=== PATIENT | male | born 1960 | race Caucasian/White ===

== ENCOUNTER → 2019-06-27 09:50 | Outpatient (CLI) | payer MEDICARE, OTHER, SELFPAY ==
[2019-06-27 10:58] LABS: Add Manual Diff / Slide Review NO; Basophils Absolute Auto 0 /uL (0-100); Basophils Percent Auto 0.6 % (0-2); Eosinophils Absolute Auto 100 /uL (0-450); Eosinophils Percent Auto 1.8 % (2-4); Hematocrit 46.3 % (41-53); Lymphocytes Absolute Auto 1800 /uL (1100-4500); Mean Corpuscular HGB Conc 34.5 % (30-36); Mean Corpuscular Hemoglobin 30.6 PG (26-34); Mean Corpuscular Volume 88.7 fL (80-100); Monocytes Absolute Auto 400 /uL (0-900); Monocytes Percent Auto 6.8 % (3-14); Neutrophils Absolute Auto 3200 /uL (1500-7000); Neutrophils Percent Auto 57.8 % (50-75); Platelet Count 197 X10^3/uL (150-400); Red Blood Cell Count 5.22 X10^6/uL (4.5-5.9); Red Cell Distribution Width 13.1 % (11.6-14.8); White Blood Cell Count 5.5 X10^3/uL (4.5-11.0)
[2019-06-27 12:07] LABS: Blood Urea Nitrogen 28 mg/dL (9-20); Calcium 9.6 mg/dL (8.4-10.2); Carbon Dioxide 24 mmol/L (22-32); Chloride 106 mmol/L (98-107); Estimated Glomerular Filt Rate > 60.0 mL/min (>60); Glucose 107 mg/dL (70-100); HEMOLYSIS < 15 (0-50); Potassium 4.9 mmol/L (3.4-5.1); Sodium 141 mmol/L (137-145)
== END ==
PROVIDERS: Visit Provider Physician Assistant Surgical
DX: Z01.818 Encounter for other preprocedural examination (principal); M54.5 Low back pain
CPT/HCPCS: 36415; 80048; 85025; 93005

== ENCOUNTER 2019-07-25 06:04 | Inpatient (IN) | payer MEDICARE, OTHER, SELFPAY ==
[2019-07-15 09:52] VITALS: BMI 30.4
[2019-07-25] VITALS (17 sets, daily range): BP systolic 98–142; BP diastolic 67–87; PULSE 61–107; RESP 10–20; TEMP 36–36.8; O2SAT 93–100; BMI 30.4
--- NOTE | 2019-07-25 | DI.RAD.S_ITS ---
PROCEDURE: XR LUMBAR SPINE 2-3V INDICATIONS: L3-5 TLIF W/ POSTERIOR INSTRUMENTATION TECHNIQUE: 3 views of the lumbar spine were acquired. COMPARISON: None. FINDINGS: 3 intraoperative fluoroscopy images demonstrate discectomy, laminectomy and posterior fusion at L3-L4 and L4-L5. Pedicular screws and fusion rods are in expected position. IMPRESSION: Discectomy, laminectomy and posterior fusion at L3-L4 and L4-L5. Dictated by: Mitzi Dahl M.D. on 07/25/2019 at 14:02 Approved by: Mitzi Dahl M.D. on 07/25/2019 at 14:03
[2019-07-25] MEDS: LACTATED RINGERS 1,000 ML 42 ML IV ×2 (07:31→09:58)
[2019-07-25] MEDS: ALBUTEROL 2.5 MG/3 ML NEB (ADULT) INH (07:32)
--- NOTE | 2019-07-25 07:46 | PM.PREOP ---
Pre-operative Note Interval Note History & Physical reviewed/Exam performed by Physician: Yes Changes to H&P: No
[2019-07-25] MEDS: CEFAZOLIN 2 GM/100 ML FROZ.PIGGY IV ×2 (07:50→17:19)
--- NOTE | 2019-07-25 08:34 | SUR.OPER ---
Prone on spine table, head in foam head support, padded chest and pelvic supports, gel pad at knees, lower legs supported by pillows; nipples, genitalia and toes free of pressure, arms secured on foam padded arm boards at <90 degrees abduction. Tape over blanket at thigh secured to table.
[2019-07-25] MEDS: BUPIVACAINE LIPOSOME 266 MG/20 ML VIAL INJ (08:42)
[2019-07-25] MEDS: BUPIVACAINE 0.25% W/ EPI 30 ML VIAL INJ (08:42)
--- NOTE | 2019-07-25 12:41 | P.OP_ITS ---
Operative Date/Time/Diagnoses Date of procedure: 07/25/19 Time of procedure: 07:54 Pre-op diagnosis: 1. Lumbar scoliosis 2. Lumbar lateral listhesis L4-5 3. L3-4, L4-5 spinal stenosis Post-op diagnosis: same Procedure & Clinicians Procedure: 1. L3-4, L4-5 Postero-lateral and posterior interbody fusion 2. L3-4, L4-5 interbody cage placement. 3. L3-4, L4-5 decompressive laminectomy with bilateral facetecomies 4. L3-4, L4-5 Posterior segmental instrumentation 5. [place] of bone marrow from iliac crest 6. Utilization of microsurgical technique and operating microscope Same procedure as scheduled: Yes Indications: Patient has been having chronic back pain and worsening lumbar radiculopathy. Patient failed multiple conservative management with worsening pain weakness and numbness in her lower extremity. Patient has been having difficulty performing activity of daily living. After discussing risks benefits of treatment options, patient elected proceed with surgery. Surgeon: Amarjit Trinidad Power Lineman: Ami Johnson Click Yes if Unassisted: No Anesthesia Type: General Operative Notes Closure Type: primary Specimen(s): none sent Prosthetic devices, grafts, tissues, transplants, or devices: Globus revolve screws, Rise cages Applied: catheter Estimated Blood Loss (mL): 400 Blood products transfused: none Procedure in detail: Patient was seen in the preoperative area. Risks and benefits of the surgery was discussed with the patient. Informed consent was obtained from the patient and placed in the chart. Surgical site was marked. Patient was taken to the operative room. General anesthesia was administered. Prophylactic antibiotic was given to the patient less than 30 min before the incision was made. Patient was placed into a prone position on the Jose Raul table. Patient's back was then prepped and draped in the sterile fashion. Time- out was performed at this time. Using AP and lateral C-arm imaging the interval between L3-4, L4-5 was identified and marked on patient's back. A 2 inch incision 2 in from midline was made on the left side first. The fascia was incised in line with skin incision. Globus MARS retractors was placed inside the incision and docked onto the L3 and L4 lamina. Using microsurgical technique and operating microscope, a L3 and L4 laminectomy and L3-4 L4-5 facetectomy was performed using a Kerrison rongeur. During the process of decompression more than 75% of bilateral L3-4, L4-5 facets were removed in order to decompress the spinal canal and the lateral recess. The L3-4, L4-5 level was grossly unstable after the decompression was completed and requiring the fusion procedure. The disc space at L3-4, L4-5 was identified. And a total diskectomy was performed at L3-4, L4-5 level. The endplates were decorticated using a rasp and shaver. The total diskectomy and decortication was performed at L3-4, L4-5 level in order to to accomplish a L3- 4, L4-5 fusion. The local bone from the laminectomy and facetectomy was saved for local bone grafting. After the total diskectomy and decortication was completed, Bio4 bone graft material was combined with local bone that was harvested earlier. At this time, a separate skin is incision was made over the iliac crest. A Jamshidi needle was inserted into the iliac crest through a separate skin incision. 5 cc of bone marrow aspiration was obtained through the separate skin incision using a Jamshidi needle from the iliac crest. The bone marrow aspiration was combined with local bone and the Bio4 bone grafting material. The bone grafting material was placed into the L3-4, L4-5 interbody space along with two cages, one expandable cage at each level. The cages were expanded to their maximum height using the torque limiting screwdriver. At this time a mirror image incision was made on the right side. The fascia was incised in line with the skin incision. Globus MARS retractor was inserted and docked onto the L3-4, L4-5 posterolateral gutter. Using the power drill, posterior-lateral decortication was performed at L3-4, L4-5 level until bleeding cortical bone was identified. The remaining bone grafting material was placed into the L4-5 L5-S1 posterior lateral gutter he order to accomplish posterolateral fusion at the L3-4, L4-5 levels. Using the double C-arm technique, pedicle screws were placed into the L3, L4, L5 pedicles bilaterally. This was done by placing the Jamshidi needle into the pedicles, then placing the guidewires over the Jamshidi needle, and finally placing the cannulated screws over the guidewires bilaterally. After the pedicle screws were placed, 2 titanium rods was locked into the heads of the pedicle screws using locking caps and torque limiting screwdriver. Total 6 pedicles screws were placed. After all the hardware was placed, and confirmed with AP and lateral C-arm imaging, the wound was then irrigated with sterile normal saline and packed with Ray-Arlet gauze for 3 min to accomplish hemostasis. After the gauze was removed the deep fascia was closed with #1 Vicryl suture. The subcutaneous layer was closed with 2-0 Vicryl. The skin was closed with skin daria. Patient tolerated the procedure well. There were no complications. Complications: none Post-operative Condition: stable Disposition: PACU Plan for aftercare: Admit to inpatient hospital
[2019-07-25] MEDS: fentaNYL 100 MCG/2 ML INJ 50 MCG IV ×2 (12:50→13:00)
[2019-07-25] MEDS: LORazepam 2 MG/ML INJ 0.5 MG IV ×2 (12:50→12:58)
[2019-07-25] MEDS: HYDROMORPHONE 2 MG INJ 0.5 MG IV ×8 (12:55→13:35)
[2019-07-25] MEDS: SODIUM CHLORIDE 0.9% 1,000 ML 100 ML IV (14:17)
--- NOTE | 2019-07-25 14:27 | PC.NURSE ---
Patient drowsy, aroused to name, oriented follows commands. RR 10 sats on RA while sleeping 88% Placed O2 at 2L sats 93-94% CMS+ dressing to back had rolled up removed top and placed new telfa. SCD's on, alarm on.
[2019-07-25] MEDS: OXYCODONE IR 5 MG TABLET 10 MG PO (17:19)
[2019-07-25] MEDS: ONDANSETRON 4 MG/2 ML INJ IV (17:40)
[2019-07-25] MEDS: HYDROMORPHONE 1 MG INJ 0.5 MG IV ×2 (20:19→22:27)
[2019-07-25] MEDS: hydrOXYzine pamoate 25 MG CAPSULE PO (20:21)
[2019-07-26] MEDS: CEFAZOLIN 2 GM/100 ML FROZ.PIGGY IV (00:27)
[2019-07-26 00:30] VITALS: BP 130/82; PULSE 65; RESP 18; TEMP 36.4; O2SAT 98
[2019-07-26] MEDS: ONDANSETRON 4 MG/2 ML INJ IV ×2 (00:33→06:03)
[2019-07-26] MEDS: ACETAMINOPHEN 325 MG TABLET 650 MG PO ×2 (01:11→09:06)
[2019-07-26] MEDS: SODIUM CHLORIDE 0.9% 1,000 ML 100 ML IV (01:47)
[2019-07-26] MEDS: HYDROMORPHONE 1 MG INJ 0.5 MG IV ×2 (02:59→06:02)
[2019-07-26] MEDS: hydrOXYzine pamoate 25 MG CAPSULE PO ×2 (03:00→08:05)
--- NOTE | 2019-07-26 03:15 | PC.NURSE ---
Assessed the dressing on the lower back. Dressing was saturated with sanguinous drainage. Two ABD dressings with tape were applied to reinforce the current dressing. The patient was medicated after dressing change, see MAR.
[2019-07-26 05:44] LABS: Hematocrit 39.4 % (41-53); Hemoglobin 13.5 g/dL (13.5-17.5)
[2019-07-26 06:03] VITALS: BP 135/73; PULSE 70; RESP 20; TEMP 36.8; O2SAT 97
[2019-07-26] MEDS: VITAMIN B COMPLEX 1 CAPSULE 1 CAP PO (08:05)
[2019-07-26] MEDS: DOCUSATE 100 MG CAPSULE PO (08:05)
[2019-07-26] MEDS: CYANOCOBALAMIN (VITAMIN B-12) 500 MCG TABLET 1000 MCG PO (08:05)
[2019-07-26] MEDS: MAGNESIUM OXIDE 400 MG TABLET PO (08:05)
[2019-07-26 08:52] VITALS: BP 150/107; PULSE 88; RESP 13; TEMP 36.7; O2SAT 96
[2019-07-26] MEDS: HYDROCODONE/ACET 10/325 TABLET 1 TAB PO ×2 (09:06→12:35)
[2019-07-26] MEDS: PREGABALIN 50 MG CAPSULE 200 MG PO (09:09)
--- NOTE | 2019-07-26 10:25 | PT.IPTN ---
Current Diagnoses Other secondary scoliosis, lumbar region (07/25/19) Spondylolisthesis, lumbar region (07/25/19) Spinal stenosis, lumbar region without neurogenic claudication (07/25/19) Surgery Performed Operation Date: 07/25/19 07:45 Actual Procedures p L2-3,L3-4,L4-5 TLIF w/posterior instrumentation - Amarjit Trinidad MD Physical Therapy Treatment Note M2 PT-IP Current Condition Start: 07/25/19 16:47 Freq: NEEDED Status: Active Protocol: Document 07/26/19 09:31 LRN (Rec: 07/26/19 10:01 LRN [email or web address]) Physical Therapy Current Condition Current Condition Evaluation Date 07/26/19 Treatment Diagnosis s/p L3-L5 TLIF Onset Date 07/25/19 Precautions Lumbar Precautions Log Roll,No Twisting,Limit Bending,Lifting Restriction of 10 lbs,Gait Belt above Incisional Area Weight Bearing Status Weight Bearing Status Full Weight Bearing M3 PT-IP Subjective Start: 07/25/19 16:47 Freq: NEEDED Status: Active Protocol: Document 07/26/19 09:31 LRN (Rec: 07/26/19 10:01 LRN [email or web address]) Subjective Physical Therapy Visit Type Type Initial Evaluation Visit Start Time 09:15 Visit Stop Time 10:25 Total Visit Minutes 45 Notes Pt standing with OIL PROGRAM COMPLIANCE SPECIALIST at start of therapy getting ready to go for a walk. Pt for gait assessment/treat; Break during eval for pt to rest in bed 25' prior to completing assessment. Number of STAFF ANALYST Visits 0 Physical Therapy Visit Comments Patient Comments Pt agreeable to therapy. Reports mild nausea. Denies dizziness or lightheadedness. Agreeable to returning to bed for a rest before getting into chair to sit for awhile. Finds moving and deep breathing more comfortable prolonged positioning. Therapy Pain Assessment Pain When Pain Assessed Constant Pain Present Pain Present Pain Reported Location Lower Back Intensity 8 Scale Used Verbal report M4 PT-IP Mobility and Gait Start: 07/25/19 16:47 Freq: NEEDED Status: Active Protocol: Document 07/26/19 09:31 LRN (Rec: 07/26/19 10:01 LRN [email or web address]) PT-Bed Mobility Assessment Rolling Type of Rolling Log Rolling Level of Assist Standby Assistance,1 Person Assistance Supine to Sit Supine to Sit Standby Assistance,1 Person Assistance Sit to Supine Sit to Supine Standby Assistance,1 Person Assistance PT-Transfer Assessment Sit to and From Stand Sit to and from Stand Minimal Assistance,1 Person Assistance,Use of Upper Extremities Equipment Transfer Assistive Device Front Wheeled Walker Orthotic/Prosthetic Devices or Brace: No Transfers Transfer Destination Chair Transfer Technique Stand Step Pivot Transfer Ability Level of Assist Standby Assistance,1 Person Assistance Comments Mobility Comments Pt needed training and cuing to prevent collapsing onto surface he was transferring towards. Gait Assessment Gait Gait Assistance Required: Standby Assistance,1 Person Assist Distance (Feet) 130 Able to Maintain Weight Bearing Status Yes During Gait Assistive Devices Assistive Device Gait Belt,Front Wheeled Walker Orthotic/Prosthetic Devices or Brace: No Gait Deviations General Gait Pattern Decreased Stride Length,Flexed Trunk Factors Limiting Gait Function Factors Limiting Gait Function Decreased Activity Tolerance, Pain,Poor Balance Comments Gait Comments Pt is a very tall and tends to have a slight forward lean with gait. He is requires the use of an assistive device due to back pain and instability. Stair Climbing Assessment Comments Stair Climbing Comments Pt not appropriate for stair ambulation at this time. PT-Balance Assessment Sitting Balance and Reactions Static Sitting Balance Ability Good Standing Balance and Reactions Static Standing Balance Ability Good Dynamic Standing Balance Ability Fair M5 PT-IP Objective Assessments Start: 07/25/19 16:47 Freq: NEEDED Status: Active Protocol: Document 07/26/19 09:31 LRN (Rec: 07/26/19 10:01 LRN [email or web address]) Orientation Orientation/Cognition Level of Alertness Alert Orientation Name Language Function Ability No Deficits Noted Safety Awareness Decreased Safety Awareness Comments Pt plops when sitting and getting into bed. When placing pillows under his head he performed a supine sit up motion with his arms assisting impulsively. Pt did appear to understand back precautions post op. Gross Range of Motion Upper Extremity ROM Assessment Within Functional Limits Lower Extremity ROM Assessment Within Functional Limits Strength Upper Extremity Strength Assessment Within Functional Limits Lower Extremity Strength Hip Limited due to back pain. Knee WFL Ankle WFL Sensation Assessment Sensation Gross Sensation Right LE Impaired,Left LE Impaired Sensation Description Numbness Comments Sensation Comments Decreased sensation in L2, L3 dermatomes. Muscle Tone Muscle Tone WNL Yes M6 PT-IP Treatment Start: 07/25/19 16:47 Freq: NEEDED Status: Active Protocol: Document 07/26/19 09:31 LRN (Rec: 07/26/19 10:01 LRN [email or web address]) Physical Therapy Treatment Exercises Exercises Ankle Pumps,Gluteal Sets Education Education Provided Precautions,Weight Bearing Status,Safety Other Treatments Other Treatment Performed Bed ex: LE roll in/outs, Deep Breathing. M7 PT-IP Assessment and Plan Start: 07/25/19 16:47 Freq: NEEDED Status: Active Protocol: Document 07/26/19 09:31 LRN (Rec: 07/26/19 10:01 LRN [email or web address]) PT Summary Assessment and Plan Potential Rehabilitation Potential Excellent Status of Condition at Evaluation Evolving Summary Impairments Pain,Strength,Balance,Bed Mobility,Transfers,Gait, Activity Tolerance Assessment Summary Pt is a 58 yr old male, s/p L3 -L4, L4-L5 laminectomy and facetecomies with interbody cage placement with posterior and postero-lateral interbody fusion with [place] of bone marrow form iliac crest. Pt is doing very well PO Day 1. Prior to PT eval, pt reported being up already and had walked around the nursing station because he was having too much pain from lying in bed. Pt has good LE/UE strength. He has difficulty with transfers and is rather unsafe due to his plopping when sitting and collapsing into bed. Pt movement is not safe at this time and needs further transfer and movement education for safety. Pt is expected to do well with therapy and will benefit from skilled physical therapy for progression of his back rehabilitation post surgery. Goals Bed Mobility Goal Independent Transfer Goal Independent Gait Goal Independent Gait Distance 150 Other Goals Stair ambulation 4 steps x 3 sets with victor manuel railing, I>SBA. Days to Meet Goals 3 Frequency of Treatment Frequency Of Treatment Twice a Day Treatment Plan Physical Therapy Treatment Plan Bed Mobility Training,Transfer Training,Gait Training, Therapeutic Exercise,Balance Retraining,Post Op Education, Hot or Cold Pack,Neuromuscular Re-ed Other Recommendations and Next Treatment Issue of PO Education packet Focus handouts, continue Transfer training for control of movement, gait training without AD or w/cane for indep and safe gait, therapeutic exercise. Recommendations To Nursing Amount of Assist Needed Standby Assistance,1 Person Assist Discharge Recommendations PT Discharge Recommendations Home
--- NOTE | 2019-07-26 10:43 | PM.DS.1 ---
History of Present Illness History of Present Illness Date Patient Seen: 07/26/19 Time Patient Seen: 10:44 Chief complaint: [id number] Narrative: Patient has been having chronic back pain and worsening lumbar radiculopathy. Patient failed multiple conservative management with worsening pain weakness and numbness in her lower extremity. Patient has been having difficulty performing activity of daily living. After discussing risks benefits of treatment options, patient elected proceed with surgery. Discharge Providers Provider Date of admission: 07/25/19 06:04 Discharge Date: 07/26/19 Primary care physician: Vijaya Chawla DO Consults: 07/15/19 10:38 Consult to Pastoral Services Routine Comment: INPT 07/25/19 07/25/19 14:05 Consult to Occupational Therapy Evaluate & Treat Comment: Physician Instructions: Evaluate and treat Consult to Physical Therapy Evaluate & Treat Comment: Physician Instructions: Evaluate and Treat Discharge provider: Becky Adames PA-C Summary Hospital Course Discharge Diagnosis: s/p L3-5 TLIF PTSD Peripheral neuropathy Carpal tunnel syndrome BPH Hospital Course: Mian admitted for L3-[address] Trinidad. Hospital course unremarkable. On postop day 1 patient was ready to discharge home. He is eating and voiding without difficulty or assistance. He is mobilizing safely with physical therapy. Using a walker to mobilize. Cover site dressing applied prior to discharge. Pain well controlled with [place], and Vistaril. Status at Discharge Functional status at discharge: uses cane/walker Exam Vital Signs (past 8 hours): - 07/26/19 06:03 07/26/19 08:52 Temperature 98.2 F 98.0 F Pulse Rate 70 88 Respiratory Rate 20 13 Blood Pressure 135/73 150/107 H Pulse Oximetry 97 96 Oxygen Delivery Method Room Air Oxygen Flow Rate 0 Narrative Exam Narrative: Patient lying in bed in no acute distress. He is alert orient x3. Calves are soft, flat, nontender bilaterally. Pulses symmetrical. He is able to actively dorsiflex plantar flex. Pain well controlled today with [place]. He does really well with Vistaril as well. He notes he feels better when he is moving out of bed. He does complain of nausea with pain medication. Objective Labs Result Diagrams: 07/26/19 05:30 Labs: Laboratory Results - last 24 hr 07/26/19 05:30 Hgb 13.5 Hct 39.4 L Discharge Plan Discharge Plan Patient Disposition: Home Discharge Med Rec/Prescriptions Prescriptions: New docusate sodium [DOK] 100 mg Capsule 100 mg PO BID Qty: 30 RF: 0 hydroxyzine pamoate 25 mg Capsule 25 mg PO Q4-6H PRN (Reason: Nausea And Vomiting) Qty: 60 RF: 1 ondansetron HCl [Zofran] 4 mg tablet 4 mg PO Q8H PRN (Reason: nausea and vomiting) Qty: 20 RF: 0 hydrocodone-acetaminophen [[place]] 10-325 mg tablet 1 tab PO Q4-6H PRN (Reason: pain) Qty: 60 RF: 0 Continued cyanocobalamin (vitamin B-12) [Vitamin B-12] 1,000 mcg Tablet 1,000 mcg PO DAILY RF: 0 tamsulosin 0.4 mg Capsule 0.4 mg PO BEDTIME RF: 0 vitamin B complex Capsule 1 cap PO DAILY RF: 0 pregabalin 200 mg Capsule 200 mg PO BEDTIME RF: 0 potassium gluconate 595 mg (99 mg) Tablet 595 mg PO DAILY RF: 0 magnesium oxide 400 mg magnesium Tablet 400 mg PO DAILY RF: 0 Discontinued naproxen 500 mg Tablet 500 mg PO BID RF: 0 Follow up/Referrals: Amarjit Trinidad MD [Physician] - Vijaya Chawla DO [Primary Care Provider] - Provider Discharge Instructions Activity: No excessive bending, lifting, or twisting. Cold/Heat Therapy: as needed Skin/Wound/Dressing Care Report to your healthcare provider any signs of infection, such as:: chills, fever and increased pain Dressing: Leave coversite dressing on until appointment Visit Report/Discharge Packet Instructions: Hydrocodone Combination Products, Hydroxyzine, DI for Transforaminal Lumbar Interbody Fusion Discharge Data Primary Care Provider: Vijaya Chawla
--- NOTE | 2019-07-26 10:51 | CM.DANOTE ---
DCP: Case received, EMR reviewed and met with patient. Introduced self and role. Was able to converse with patient and obtain baseline health and activity information. DCP assessment/template completed with information currently available. Patient is a 58 year old male who admitted yesterday morning to the care of the orthopedic team. PCP: Dr. Chawla. Payer: confirmed: Medicare/[employer]. Patient came to the hospital for a surgical procedure. He had L2-5, TLIF postero-lateral interbody fusion. Patient has had chronic back pain. Met with patient in his room. Alert and oriented, was laying in bed. He stated that he had already been up walking, and it was more comfortable for him when he was up and walking around. Patient is independent at baseline, no DME supplies. He resides in [place] with his spouse, Radha. P: Patient is to be discharging home today. He will be following up at orthopedic office. Piper Bishop RN/Senior Property Accountant
[2019-07-26 12:00] VITALS: BP 143/73; PULSE 71; RESP 13; TEMP 36.7; O2SAT 98
--- NOTE | 2019-07-26 12:30 | OT.IP.EVAL ---
Current Diagnoses Other secondary scoliosis, lumbar region (07/25/19) Spondylolisthesis, lumbar region (07/25/19) Spinal stenosis, lumbar region without neurogenic claudication (07/25/19) Surgery Performed Operation Date: 07/25/19 07:45 Actual Procedures p L2-3,L3-4,L4-5 TLIF w/posterior instrumentation - Amarjit Trinidad MD Past Medical History (Last Updated 07/15/19 @ 10:23 by Betty Chao, RN) Arthritis (Acute) Bowel obstruction (Acute ~2014) Concussion (Acute) Enlarged prostate (Acute) Fatty liver (Acute) Former smoker (Acute) Left ankle pain (Acute) Peripheral neuropathy (Acute) PTSD (post-traumatic stress disorder) (Acute) Sciatica (Acute) Tendonitis, Achilles, left (Acute) Surgical History (Last Updated 07/15/19 @ 10:22 by Betty Chao RN) History of arthroplasty of right shoulder (Acute ~2013) History of testicular surgery (Acute) Occupational Therapy Inpatient Evaluation/Re-Eval M1 PT/OT-IP Prior Functional Status Start: 07/25/19 16:47 Freq: NEEDED Status: Active Protocol: Document 07/26/19 14:24 CGR (Rec: 07/26/19 14:38 CGR [email or web address]) Medical Review Prior Functional Status Medical History Reviewed Yes Diet/Fluid Consistency Regular Communication Normal Mobility and Gait Independent without assistive device Activities of Daily Living and IADL's Independent Prior Functional Level (Other details) Pt reports he is on 100% disability. He can walk, mow lawn, green (not carrying anything) and fish. Social History Household Members spouse Living Arrangements Apartment/Condo Number of Floors (Floors) Two Floors Number of Stairs To Enter/Railing? 3 stairs into the house with B rails then 15 steps to the second floor with B rails. Home Environment Standard Height Toilet,Tub/ Shower Home Equipment Four Wheel Walker,Grab Bars In Shower Employment Status Unemployed Additional Social History Comment disabled M2 OT-IP Current Condition Start: 07/26/19 14:22 Freq: Status: Active Protocol: Document 07/26/19 14:24 CGR (Rec: 07/26/19 14:38 CGR [email or web address]) Occupational Therapy Current Condition Current Condition Evaluation Date 07/26/19 Treatment Diagnosis L3-5 posterior Diagnosis Onset Date 07/25/19 Post Operative Precautions Lumbar Precautions Log Roll,No Twisting,Limit Bending,Lifting Restriction of 10 lbs,Gait Belt above Incisional Area M3 OT- IP Subjective and Pain Start: 07/26/19 14:22 Freq: Status: Active Protocol: Document 07/26/19 14:24 CGR (Rec: 07/26/19 14:38 CGR [email or web address]) OT- Subjective Occupational Therapy Visit Type Type Initial Evaluation Visit Start Time 11:28 Visit Stop Time 12:30 Total Visit Minutes 62 Notes Pt's present for most of session. Occupational Therapy Visit Comments Patient Comments It feels best if I get up and move every so often. OT Pain Assessment Pain When Pain Assessed At Rest Pain Present Pain Present Pain Reported Location Lower Back Intensity 3 Scale Used Numeric (1 - 10) Management Techniques Distraction,Re-positioning, Timing of Activity with Medications M4 OT- IP ADL's Start: 07/26/19 14:22 Freq: Status: Active Protocol: Document 07/26/19 14:24 CGR (Rec: 07/26/19 14:38 CGR [email or web address]) OT [id number] General Evaluation Self-Feeding Ability Independent Comments OT Self-Feeding Comments Lunch arrived at end of session. OT ADL-Grooming General Evaluation Grooming Ability Independent Areas Needing Assistance Retrieving/Set-up of Grooming Items,Face Washing Comments OT Grooming Comments Standing at sink with set up. OT ADL-Oral Care General Eval Oral Care Ability Independent Areas of Assistance Brushing Teeth Comments Oral Care Comments standing at sink OT ADL-Dressing General Eval Upper Body Dressing Ability Independent Lower Body Dressing Ability Standby Assistance Areas Needing Assistance Retrieving/Set-up of Clothing, Underpants/Brief,Socks Assistive Devices Dressing Assistive Devices Physician Assistant Surgery Comments OT Dressing Comments Pt able to don socks with bring foot to ankle but needed hospice entrance attendant to don brief. OT ADL-Toileting General Evaluation Toileting Ability Independent Comments OT Toileting Comments educated on need for home toilet heightner and use of walker with toileting. OT ADL-Bathing Comments OT Bathing Comments Not performed in this session. M5 OT- IP IADL's Start: 07/26/19 14:22 Freq: Status: Active Protocol: Document 07/26/19 14:24 CGR (Rec: 07/26/19 14:38 CGR [email or web address]) OT-Instrumental Activities of Daily Living Deficits IADL Deficits Identified Deficits Home Safety Awareness Awareness of Need for Assistance at Home Good Awareness Ability to Problem Solve Emergency Able to Problem Solve Situations Home Safety Comments Pt able to identify tasks that he will not be able to perform while on back precautions. Medication Management Medication Management No Deficits Identified Money Management Money Management No Deficits Identified Meal Preparation Meal Preparation Caregiver Provides Supervision ,Caregiver Provides Assist Insulation Estimator Insulation Estimator Caregiver Provides Assist Driving Driving Caregiver Provides Assist M6 OT- IP Functional Cognition Start: 07/26/19 14:22 Freq: Status: Active Protocol: Document 07/26/19 14:24 CGR (Rec: 07/26/19 14:38 CGR [email or web address]) Cognitive Factors Limiting Selfcare Function Cognitive Ability Level of Alertness Alert Patient Orientation Name,Age,Birthday,Month,Date, Year,Day of Week,Place, Situation Attention Span Ability Capable of Focused Attention, Capable of Sustained Attention Ability to Follow Commands Able to Follow Multi-Step Commands Memory Description No Deficits Noted Safety Awareness No Deficits Noted Problem Solving Ability No deficits Noted Executive Function Ability No Deficits Noted Abstract Thinking Ability No Deficits Noted OT- Vision and Hearing OT- Hearing Assessment OT- Hearing Assessment WFL OT- Vision Assessment Visual Acuity Glasses For Reading Visual Attentiveness WFL Occular Pursuits WFL Visual Convergence WFL Visual Gonzalez WFL Diplopia Absent M7 OT- IP Mobility and Balance Start: 07/26/19 14:22 Freq: Status: Active Protocol: Document 07/26/19 14:24 CGR (Rec: 07/26/19 14:38 CGR [email or web address]) OT- Bed Mobility Assessment Rolling Type of Rolling Log Rolling Level of Assistance Independent Supine to Sit Supine to Sit Assist Independent Scooting Scooting to Edge of Bed Independent OT-Transfer Assessment Sit to and From Stand Sit to and from Stand Standby Assistance Transfers Transfer Ability Standby Assistance Technique Transfer Destination Bed,Chair,Toilet Transfer Technique Stand Step Pivot Devices Transfer Assistive Devices Gait Belt,Front Wheeled Walker OT- Gait Assessment Gait Gait Assistance Required: Standby Assistance Assistive Devices Assistive Device Gait Belt,Front Wheeled Walker Comments Gait Ability Comments mobility around the room. OT- Balance Assessment Sitting Balance and Reactions Static Sitting Balance Ability Normal Dynamic Sitting Balance Ability Good M8 OT- IP Objective Assessments Start: 07/26/19 14:22 Freq: Status: Active Protocol: Document 07/26/19 14:24 CGR (Rec: 07/26/19 14:38 CGR [email or web address]) OT Gross Range of Motion Upper Extremity Range of Motion Assessment Within Functional Limits OT Strength Upper Extremity Strength Assessment Within Functional Limits OT- Coordination Assessment Upper Extremity Finger to Nose Test Within Functional Limits Finger Tapping Test Within Functional Limits OT-Muscle Tone Assessment Muscle Tone WNL Yes OT Sensation Assessment Edema Edema Absent M9 OT- IP Assessment and Plan Start: 07/26/19 14:22 Freq: Status: Active Protocol: Document 07/26/19 14:24 CGR (Rec: 07/26/19 14:38 CGR [email or web address]) OT Summary Assessment and Plan Potential Rehabilitation Potential Excellent Analytic Complexity at Evaluation Low Summary OT Impairments Pain,Functional Mobility Progress Towards Goals Progressing Toward Goals,Safe For Discharge Assessment Summary Pt presents as a low complexity evalution. Pt educated on back precautions and adjustments to ADLs in order to maintain back precautions. Pt states understanding and performed activities using modifications and DME. Pt safe for d/c home with support. No further OT needs. Frequency of Treatment Frequency Of Treatment Discharge Discharge Recommendations Home Equipment Needs toilet heightner. Provided with hip kit.
--- NOTE | 2019-07-26 14:24 | PC.NURSE ---
SHIFT SUMMARY: PATIENT'S DRSG TEARING APART IN CENTER, STILL OCCLUSIVE, BUT W/ HEAVY DRAINAGE. REMOVE ENTIRE DRSG. INCISIONS WELL APPROX, NO ACTIVE DRAINAGE W/ ISAAC ALL INTACT, BRUISING BUT NO ERYTHEMA OR EDEMA TO SITE. APPLIED COVERSITE X2 AND OP-SITE X2 TO PREVENT DRSG FROM ROLLING UP. PATIENT STEADY ON FEET WITH AMBULATION. FOLLOWS LOG ROLL INSTRUCTIONS FOR IN AND OUT OF BED. REPORTS PAIN BETTER CONTROLLED W/ NORCO AND VISTARIL, AND DENIES NAUSEA. ATE WELL AT BREAKFAST AND LUNCH. TAKING IN PO FLUIDS. EDUIN ESQUEDA'Scott FIRST THING THIS AM PER PATIENT REQUEST.
--- NOTE | 2019-07-26 14:26 | PT.IPTN ---
Current Diagnoses Other secondary scoliosis, lumbar region (07/25/19) Spondylolisthesis, lumbar region (07/25/19) Spinal stenosis, lumbar region without neurogenic claudication (07/25/19) Surgery Performed Operation Date: 07/25/19 07:45 Actual Procedures p L2-3,L3-4,L4-5 TLIF w/posterior instrumentation - Amarjit Trinidad MD Physical Therapy Treatment Note M2 PT-IP Current Condition Start: 07/25/19 16:47 Freq: NEEDED Status: Discharge Protocol: Document 07/26/19 09:31 LRN (Rec: 07/26/19 10:01 LRN [email or web address]) Physical Therapy Current Condition Current Condition Evaluation Date 07/26/19 Treatment Diagnosis s/p L3-L5 TLIF Onset Date 07/25/19 Precautions Lumbar Precautions Log Roll,No Twisting,Limit Bending,Lifting Restriction of 10 lbs,Gait Belt above Incisional Area Weight Bearing Status Weight Bearing Status Full Weight Bearing M3 PT-IP Subjective Start: 07/25/19 16:47 Freq: NEEDED Status: Discharge Protocol: Document 07/26/19 14:26 AB (Rec: 07/26/19 15:38 AB [id number]) Subjective Physical Therapy Visit Type Type Treatment Note Visit Start Time 14:26 Visit Stop Time 14:53 Total Visit Minutes 27 Number of HOT METAL CAR OPERATOR Visits 0 Physical Therapy Visit Comments Patient Comments pt agreeable to do PT Therapy Pain Assessment Pain When Pain Assessed During Mobility Pain Present Pain Present Pain Reported Location Lower Back Scale Used pain scale not stated Pain Management Techniques Apply Cold,Timing of Activity with Medications M4 PT-IP Mobility and Gait Start: 07/25/19 16:47 Freq: NEEDED Status: Discharge Protocol: Document 07/26/19 14:26 AB (Rec: 07/26/19 15:38 AB [id number]) PT-Bed Mobility Assessment Rolling Type of Rolling Log Rolling Level of Assist Standby Assistance Supine to Sit Supine to Sit Standby Assistance Sit to Supine Sit to Supine Standby Assistance Scooting Scooting to Edge of Bed Standby Assistance Scooting Up and Down in Bed Standby Assistance PT-Transfer Assessment Sit to and From Stand Sit to and from Stand Standby Assistance Equipment Transfer Assistive Device Gait Belt Orthotic/Prosthetic Devices or Brace: No Transfers Transfer Destination Chair Transfer Technique ambulated without AD Transfer Ability Level of Assist Standby Assistance Comments Mobility Comments Bed mobility training x 2 sets : educated on techniques and safety and completed log roll supine <>sit SBA and cues. completed sit <>stand x 3 reps SBA. educated on techniques for controlled descent. Gait Assessment Gait Gait Assistance Required: Standby Assistance Distance (Feet) 50 Able to Maintain Weight Bearing Status Yes During Gait Assistive Devices Assistive Device Gait Belt Orthotic/Prosthetic Devices or Brace: No Gait Deviations General Gait Pattern Antalgic Factors Limiting Gait Function Factors Limiting Gait Function Decreased Activity Tolerance, Decreased Strength,Limited Range of Motion,Pain,Poor Balance Comments Gait Comments completed ambulation 20+50+50 ft without AD; completed ambulation using 4WW SBA. 4WW is short for pt but pt stated that he will just use it to help with some balance and also for safety. pt also has walking sticks that he can use . Stair Climbing Assessment Evaluation Level of Assist On Stairs Standby Assistance Devices Stair Climbing Assistive Devices Left Railing,Right Railing Technique/Endurance Stair Climbing Direction Ascend and Descend Stair Climbing Technique Step Over Step,Step to Step Number of Steps Climbed 3 Stair Climbing Set # Repetitions (reps) 4 Comments Stair Climbing Comments pt completed up/down steps SBA using bilateral rails doing both step over step or step to step pattern. educated on safety and depending on pain doing step to step pattern and pt understood and agreed M5 PT-IP Objective Assessments Start: 07/25/19 16:47 Freq: NEEDED Status: Discharge Protocol: Document 07/26/19 09:31 LRN (Rec: 07/26/19 10:01 LRN [email or web address]) Orientation Orientation/Cognition Level of Alertness Alert Orientation Name Language Function Ability No Deficits Noted Safety Awareness Decreased Safety Awareness Comments Pt plops when sitting and getting into bed. When placing pillows under his head he performed a supine sit up motion with his arms assisting impulsively. Pt did appear to understand back precautions post op. Gross Range of Motion Upper Extremity ROM Assessment Within Functional Limits Lower Extremity ROM Assessment Within Functional Limits Strength Upper Extremity Strength Assessment Within Functional Limits Lower Extremity Strength Hip Limited due to back pain. Knee WFL Ankle WFL Sensation Assessment Sensation Gross Sensation Right LE Impaired,Left LE Impaired Sensation Description Numbness Comments Sensation Comments Decreased sensation in L2, L3 dermatomes. Muscle Tone Muscle Tone WNL Yes M6 PT-IP Treatment Start: 07/25/19 16:47 Freq: NEEDED Status: Discharge Protocol: Document 07/26/19 14:26 AB (Rec: 07/26/19 15:38 AB [id number]) Physical Therapy Treatment Education Education Provided Precautions,Safety M7 PT-IP Assessment and Plan Start: 07/25/19 16:47 Freq: NEEDED Status: Discharge Protocol: Document 07/26/19 14:26 AB (Rec: 07/26/19 15:38 AB [id number]) PT Summary Assessment and Plan Potential Rehabilitation Potential Good Summary Impairments Pain,ROM,Strength,Balance, Coordination,Sensation, Cognition,Bed Mobility, Transfers,Gait,Activity Tolerance Progress Towards Goals Progressing Toward Goals Assessment Summary pt requiring SBA with mobility and plans to go home with assist. pt educated on techniques and safety and able to follow through. pt also completed stair climbing safely using bilateral rails. Goals Bed Mobility Goal Independent Transfer Goal Independent Gait Goal Independent Gait Distance 150 Other Goals Stair ambulation 4 steps x 3 sets with victor manuel railing, I>SBA. Days to Meet Goals 3 Frequency of Treatment Frequency Of Treatment Twice a Day Treatment Plan Physical Therapy Treatment Plan Bed Mobility Training,Transfer Training,Gait Training, Therapeutic Exercise,Balance Retraining,Post Op Education, Hot or Cold Pack,Neuromuscular Re-ed Recommendations To Nursing Amount of Assist Needed Standby Assistance Discharge Recommendations PT Discharge Recommendations Home with Assistance
--- NOTE | 2019-07-26 17:28 | PC.NURSE ---
Pt spouse notified that pt walker was left at hospital. She states he won't be using that anymore. We don't need it. Also notified that there is an assistance braclet (life alert or something), and that is also no longer needed. You can just throw it away.
== END 2019-07-26 15:25 | disposition home or self-care (01) | DRG 455 ==
PROVIDERS: Admitting Provider Orthopaedic Surgery Orthopaedic Surgery of the Spine; PCP Family Medicine; Visit Provider Orthopaedic Surgery Orthopaedic Surgery of the Spine
PROC: 0SG10AJ Fusion of 2 or more Lumbar Vertebral Joints with Interbody Fusion Device, Posterior Approach, Anterior Column, Open Approach (ICD-10-PCS; principal; 2019-07-25 07:45)
DX: M48.061 Spinal stenosis, lumbar region without neurogenic claudication (principal); M41.56 Other secondary scoliosis, lumbar region; M43.16 Spondylolisthesis, lumbar region; G62.9 Polyneuropathy, unspecified; N40.0 Benign prostatic hyperplasia without lower urinary tract symptoms; Z87.891 Personal history of nicotine dependence
CPT/HCPCS: 36415; 72100; 76000; 85014; 85018; 97116; 97162; 97165; 97530; 97535; C1776; C9290; J0360; J0690; J1100; J1170; J2060; J2405; J2704; J3010; J7613